=== PATIENT | male | born 1945 | race Caucasian/White ===

== ENCOUNTER 2021-07-28 12:48 | Inpatient (IN) | payer MEDICARE, OTHER ==
[~2021-07-28] VITALS: Ht 167.6 cm; Wt 77.1 kg
[~2021-07-28 12:48] MED LIST: FLOMAX0.4 MG PO; KENALOG 0.5% CR15 GM TD; KETOCONAZOLE15 GM TD; NORVASC 5 MG TAB5 MG PO; SPIRIVA RESPIMAT4 GM INH; SYMBICORT 16010.2 GM INH; VIBRAMYCIN100 MG PO; VITAMIN B-121000 MCG PO; ZANTAC150 MG PO
[2021-07-28 14:05] LABS: HEMOGLOBIN 13.3 gm/dl (14.0-17.5); RED BLOOD COUNT 4.12 M/UL (4.20-5.50); WHITE BLOOD COUNT 10.4 K/UL (4.5-11.0)
[2021-07-28 14:34] LABS: BUN/CREATININE RATIO 13 (0-10)
[2021-07-29 05:42] LABS: HEMOGLOBIN 13.9 gm/dl (14.0-17.5); RED BLOOD COUNT 4.33 M/UL (4.20-5.50); WHITE BLOOD COUNT 8.9 K/UL (4.5-11.0)
[2021-07-29 06:09] LABS: BUN/CREATININE RATIO 16 (0-10)
[2021-07-29] MEDS ORDERED: LIPITOR TAB 2020 MG PO (08:17)
[2021-07-29] MEDS ORDERED: KETOCONAZOLE120 ML TP (08:19)
[2021-07-29] MEDS ORDERED: ACETAMINOPHEN325 MG PO (08:20)
[2021-07-29] MEDS ORDERED: PROAIR DIGIHAL90 MCG INH (08:21)
[2021-07-29] MEDS ORDERED: CALCIUM CARBON650 MG PO (08:21)
[2021-07-29] MEDS ORDERED: DOCUSATE SODIU1 EAC1 PO (08:23)
[2021-07-29] MEDS ORDERED: MYVITALIFE1 EACH PO (08:23)
[2021-07-29] MEDS ORDERED: XYLOCAINE 5% OI35 GM TOP (08:23)
[2021-07-29] MEDS ORDERED: PRIMIDONE50 MG PO (08:24)
[2021-07-29] MEDS ORDERED: VITAMIN D325 MCG PO (08:24)
[2021-07-29] MEDS ORDERED: SAW PALMETTO450 MG PO (08:25)
[2021-07-29] MEDS ORDERED: ARTIFICIAL TEAR15 M6 EYEBOTH (13:14)
[2021-07-29] MEDS ORDERED: GLUCOSE4 GM PO (13:21)
[2021-07-29] MEDS ORDERED: HYDROCHLOROTHIA25 MG PO (13:22)
[2021-07-29] MEDS ORDERED: METOPROLOL TART25 MG PO (13:27)
[2021-07-29] MEDS ORDERED: VITAMIN C1000 MG PO (13:32)
[2021-07-29] MEDS ORDERED: ASPIRIN EC81 MG PO (13:33)
[2021-07-29] MEDS ORDERED: MELATONIN5 M2 PO (13:34)
[2021-07-29] MEDS ORDERED: MAALOX ADVANCE1 EACH PO (13:43)
[2021-07-29] MEDS ORDERED: [UNRECOGNIZED DRUG - OTHER] TOP (13:46)
[2021-07-29] MEDS ORDERED: SYMBICORT 160-1 INHA INH (14:13)
[2021-07-30 03:07] LABS: HEMOGLOBIN 12.9 gm/dl (14.0-17.5); RED BLOOD COUNT 4.03 M/UL (4.20-5.50)
[2021-07-30 03:45] LABS: WHITE BLOOD COUNT 12.6 K/UL (4.5-11.0)
[2021-07-30 03:55] LABS: BUN/CREATININE RATIO 21 (0-10)
[2021-07-30 13:17] LABS: BUN/CREATININE RATIO 25 (0-10)
[2021-07-31 07:01] LABS: HEMOGLOBIN 13.5 gm/dl (14.0-17.5); RED BLOOD COUNT 4.33 M/UL (4.20-5.50); WHITE BLOOD COUNT 10.1 K/UL (4.5-11.0)
[2021-07-31 07:28] LABS: BUN/CREATININE RATIO 17 (0-10)
[2021-07-31] MEDS ORDERED: AZITHROMYCIN250 MG PO (09:32)
[2021-07-31] MEDS ORDERED: METHYLPREDNISOLO4 M1 PO ×3 (09:32)
[2021-07-31] MEDS ORDERED: OMNICEF 300 MG300 MG PO (09:32)
== END 2021-07-31 18:12 | disposition home or self-care (01) | DRG 193 ==
LOC: ER1 12:48 → CDU 20:29 → M/S 07-29 20:47
PROVIDERS: Emergency Medicine; Internal Medicine; Physician Assistant; Physician Assistant Medical; ADMIT Internal Medicine
DX: J18.9 Pneumonia, unspecified organism (principal); J96.21 Acute and chronic respiratory failure with hypoxia; J44.1 Chronic obstructive pulmonary disease with (acute) exacerbation; J44.0 Chronic obstructive pulmonary disease with (acute) lower respiratory infection; E87.1 Hypo-osmolality and hyponatremia; J98.11 Atelectasis; I13.0 Hypertensive heart and chronic kidney disease with heart failure and stage 1 through stage 4 chronic kidney disease, or unspecified chronic kidney disease; I45.2 Bifascicular block; Z20.822 Contact with and (suspected) exposure to COVID-19; I50.9 Heart failure, unspecified; E86.1 Hypovolemia; R25.1 Tremor, unspecified; E87.6 Hypokalemia; E78.5 Hyperlipidemia, unspecified; K59.00 Constipation, unspecified; N18.9 Chronic kidney disease, unspecified; I25.10 Atherosclerotic heart disease of native coronary artery without angina pectoris; Z79.82 Long term (current) use of aspirin; Z87.891 Personal history of nicotine dependence; Z90.49 Acquired absence of other specified parts of digestive tract; Z82.49 Family history of ischemic heart disease and other diseases of the circulatory system; Z98.890 Other specified postprocedural states; Z79.899 Other long term (current) drug therapy; Z95.5 Presence of coronary angioplasty implant and graft; Z90.89 Acquired absence of other organs; Z98.49 Cataract extraction status, unspecified eye; I25.2 Old myocardial infarction
CPT/HCPCS: 36415; 71045; 80048; 80053; 81001; 82550; 82553; 82962; 83605; 83735; 83880; 84295; 84484; 85025; 85027; 87040; 93005; 94640; 94664; 94760; 97116; 97116-GP-CQ; 97162; 97530-GP-CQ; 99285; J0696; J1650; J7030; Q9967; U0002

== ENCOUNTER → 2022-06-12 | Outpatient (CLI) | payer MEDICARE ==
[~2022-06-12] MED LIST changes: +ACETAMINOPHEN325 MG PO; +ARTIFICIAL TEAR15 M6 EYEBOTH; +ASPIRIN EC81 MG PO; +AZITHROMYCIN250 MG PO; +CALCIUM CARBON650 MG PO; +DOCUSATE SODIU1 EAC1 PO; +GLUCOSE4 GM PO; +HYDROCHLOROTHIA25 MG PO; +KETOCONAZOLE120 ML TP; +LIPITOR TAB 2020 MG PO; +MAALOX ADVANCE1 EACH PO; +MELATONIN5 M2 PO; +METHYLPREDNISOLO4 M1 PO; +METOPROLOL TART25 MG PO; +MYVITALIFE1 EACH PO; +OMNICEF 300 MG300 MG PO; +PRIMIDONE50 MG PO; +PROAIR DIGIHAL90 MCG INH; +SAW PALMETTO450 MG PO; +SYMBICORT 160-1 INHA INH; +VITAMIN C1000 MG PO; +VITAMIN D325 MCG PO; +XYLOCAINE 5% OI35 GM TOP; +[UNRECOGNIZED DRUG - OTHER] TOP
== END ==
LOC: HEART 5 09:19
DX: J44.9 Chronic obstructive pulmonary disease, unspecified (principal); R09.02 Hypoxemia; I51.7 Cardiomegaly; J98.11 Atelectasis
CPT/HCPCS: 71046; 94010

== ENCOUNTER → 2022-07-21 | Outpatient (CLI) | payer MEDICARE | LOC: NM 13:00 | DX: I25.119 Atherosclerotic heart disease of native coronary artery with unspecified angina pectoris (principal); R06.02 Shortness of breath; R07.9 Chest pain, unspecified; R94.31 Abnormal electrocardiogram [ECG] [EKG] | CPT/HCPCS: 78452; 93017; A9502; J2785 ==